=== PATIENT | female | born 1975 | race Caucasian/White ===

== ENCOUNTER 2022-09-09 08:30 | Emergency (ER) | payer OTHER, SELFPAY ==
[2022-09-09] VITALS (7 sets, daily range): BP systolic 164; BP diastolic 103; PULSE 74–82; RESP 16; TEMP 36.5; O2SAT 96–98; BMI 24.2
--- NOTE | 2022-09-09 08:53 | ED.GENADULT ---
HPI - General Adult General Chief complaint: Abdominal Pain Stated complaint: diverticulitis acting up Time Seen by Provider: 09/09/22 08:46 Source: patient Mode of arrival: Ambulatory Limitations: no limitations History of Present Illness HPI narrative: Patient is a 47-year-old female who is here for evaluation of 3 days of left-sided abdominal discomfort. Had some nausea last evening but not currently. She also states that she feels like she is been constipated for the past 3 days. She is not having any urinary symptoms or vaginal bleeding. She has had history of diverticulitis. This did not require surgery but she was admitted to the hospital for several days because of how extensive it was. She has had a hysterectomy. She denies any fevers. States this feels very much like her prior history of diverticulitis. Has not tried anything for the symptoms prior to arrival. Related Data Previous Rx's Medication Instructions Recorded ciprofloxacin HCl 500 mg tablet 500 mg PO BID #14 tabs 01/17/17 (Cipro) metronidazole 500 mg tablet 500 mg PO Q8H #20 tabs 01/17/17 ciprofloxacin HCl 500 mg tablet 500 mg PO BID 10 days #20 tabs 09/09/22 (Cipro) metronidazole 500 mg tablet 500 mg PO TID 10 days #30 tabs 09/09/22 Allergies Allergy/AdvReac Type Severity Reaction Status Date / Time No Known Drug Allergies Allergy Verified 09/09/22 08:57 Review of Systems Constitutional Constitutional: Reports system reviewed and no additional complaints, except as documented Respiratory Respiratory: Reports system reviewed and no additional complaints, except as documented Gastrointestinal Gastrointestinal: Reports system reviewed and no additional complaints, except as documented Genitourinary Genitourinary: Reports system reviewed and no additional complaints, except as documented Integumentary/Breasts Skin/Breast: Reports system reviewed and no additional complaints, except as documented Neurologic Neurologic: Reports system reviewed and no additional complaints, except as documented Hematologic/Lymphatic On Anticoagulants: No Exam Initial Vital Signs Initial Vital Signs: Vital Signs Temperature 97.7 F 09/09/22 08:43 Pulse Rate 82 09/09/22 08:43 Respiratory Rate 16 09/09/22 08:43 Blood Pressure 164/103 H 09/09/22 08:43 Pulse Oximetry 97 09/09/22 08:43 Oxygen Delivery Method Room Air 09/09/22 08:43 HENMN Head: normal to inspection and normocephalic Resp Effort & Inspection: normal respiratory effort Auscultation: clear to auscultation bilaterally Cardio Rate: regular rate Rhythm: regular rhythm GI Inspection: normal to inspection Palpation: soft and tender (Left-sided abdomen) Back/Spine/Pelvis Back: CVA tenderness Skin General: no rashes or lesions noted Neuro General: patient alert, patient awake and moves all extremities Extrem General: normal to inspection and capillary refill normal Course Orders Ordered: ED Orders 09/09/22 08:50 Complete Blood Count AUTO DIFF Stat Comprehensive Metabolic Panel Stat Lipase Stat Test Serum,Qual Stat 09/09/22 08:54 CT abdomen pelvis w con Stat 09/09/22 09:19 Urine Microscopic Stat Discontinued Medications Sodium Chloride (Normal Saline 0.9%) 1,000 mls @ 1,000 mls/hr IV BOLUS ONE Stop: 09/09/22 09:52 Last Infusion: 09/09/22 10:28 Dose: 0 mls/hr Documented By: Admin: 09/09/22 09:11 Dose: 1,000 mls/hr Documented By: ESTEPHANIE Morphine Sulfate (Morphine 4 Mg/Ml Inj) 4 mg IV NOW ONE Stop: 09/09/22 09:12 Last Admin: 09/09/22 09:31 Dose: 4 mg Documented By: SHAYAN Vital Signs Vital signs: Vital Signs - 8 hr 09/09/22 08:43 Temperature 97.7 F Pulse Rate 82 Respiratory Rate 16 Blood Pressure 164/103 H Pulse Oximetry 97 Oxygen Delivery Method Room Air Medical Decision Making Lab Data Lab results reviewed: Yes I reviewed the patient's lab results. 09/09/22 08:50 09/09/22 08:50 Labs: Lab Results 09/09/22 09/09/22 09/09/22 Range/Units 08:50 08:50 08:50 WBC 9.4 (4.5-11.0) X10^3/uL RBC 4.40 (4.0-5.2) X10^6/uL Hgb 13.7 (12.0-16.0) g/dL Hct 39.6 (36-46) % MCV 90.0 (80-100) fL MCH 31.1 (26-34) PG MCHC 34.6 (30-36) % RDW 12.9 (11.6-14.8) % Plt Count 243 (150-400) X10^3/uL Neut % (Auto) 80.0 H (50-75) % Lymph % (Auto) 11.2 L (25-40) % [place] % (Auto) 7.8 (3-14) % Eos % (Auto) 0.6 L (2-4) % Baso % (Auto) 0.4 (0-2) % Neut # (Auto) 7500 H (6096-9215) /uL Lymph # (Auto) 1000 L (7029-9639) /uL [place] # (Auto) 700 (0-900) /uL Eos # (Auto) 100 (0-450) /uL Baso # (Auto) 0 (0-100) /uL Sodium 136 L (137-145) mmol/L Potassium 3.7 (3.4-5.1) mmol/L Chloride 101 (98-107) mmol/L Carbon Dioxide 28 (22-32) mmol/L BUN 8 (7-17) mg/dL Creatinine 0.65 (0.52-1.04) mg/dL Estimated GFR > 60 (>60) mL/min BUN/Creatinine Ratio 12.3 (6-22) Glucose 106 H (70-100) mg/dL Calcium 9.1 (8.4-10.2) mg/dL Total Bilirubin 1.0 (0.2-1.3) mg/dL AST 19 (14-36) IU/L ALT 20 (<35) IU/L Alkaline Phosphatase 52 (38-126) U/L Total Protein 8.0 (6.3-8.2) g/dL Albumin 4.4 (3.5-5.0) g/dL Globulin 3.6 (1.7-4.1) g/dL Albumin/Globulin Ratio 1.2 (1.0-2.8) Lipase 79 (23-300) U/L Serum , Qual Negative (Negative) Urine RBC (0-5/HPF) Urine WBC (0-5/HPF) Ur Squamous Epith Cells (0-5/HPF) Urine Bacteria (None) Ur Culture Indicated? 09/09/22 Range/Units 09:19 WBC (4.5-11.0) X10^3/uL RBC (4.0-5.2) X10^6/uL Hgb (12.0-16.0) g/dL Hct (36-46) % MCV (80-100) fL MCH (26-34) PG MCHC (30-36) % RDW (11.6-14.8) % Plt Count (150-400) X10^3/uL Neut % (Auto) (50-75) % Lymph % (Auto) (25-40) % [place] % (Auto) (3-14) % Eos % (Auto) (2-4) % Baso % (Auto) (0-2) % Neut # (Auto) (0431-2879) /uL Lymph # (Auto) (3748-3134) /uL [place] # (Auto) (0-900) /uL Eos # (Auto) (0-450) /uL Baso # (Auto) (0-100) /uL Sodium (137-145) mmol/L Potassium (3.4-5.1) mmol/L Chloride (98-107) mmol/L Carbon Dioxide (22-32) mmol/L BUN (7-17) mg/dL Creatinine (0.52-1.04) mg/dL Estimated GFR (>60) mL/min BUN/Creatinine Ratio (6-22) Glucose (70-100) mg/dL Calcium (8.4-10.2) mg/dL Total Bilirubin (0.2-1.3) mg/dL AST (14-36) IU/L ALT (<35) IU/L Alkaline Phosphatase (38-126) U/L Total Protein (6.3-8.2) g/dL Albumin (3.5-5.0) g/dL Globulin (1.7-4.1) g/dL Albumin/Globulin Ratio (1.0-2.8) Lipase (23-300) U/L Serum , Qual (Negative) Urine RBC 1-5/hpf (0-5/HPF) Urine WBC None seen (0-5/HPF) Ur Squamous Epith Cells 5-10 /hpf H (0-5/HPF) Urine Bacteria None seen (None) Ur Culture Indicated? Cult not indicated Point of Care Testing Test Results Negative Urine Dip Bedside Urine Glucose Negative Bedside Urine Bilirubin - Negative Bedside Urine Ketone - Negative Urine Specific [place] 1.020 Bedside Urine Occult Blood +++ Bedside Urine pH 6.0 Bedside Urine Protein - Negative Bedside Urine Urobilinogen - Negative Bedside Urine Nitrite - Negative Bedside Urine Leukocytes - Negative Esterase Point of care testing: Point of Care Testing Test Results Negative Urine Dip Bedside Urine Glucose Negative Bedside Urine Bilirubin - Negative Bedside Urine Ketone - Negative Urine Specific [place] 1.020 Bedside Urine Occult Blood +++ Bedside Urine pH 6.0 Bedside Urine Protein - Negative Bedside Urine Urobilinogen - Negative Bedside Urine Nitrite - Negative Bedside Urine Leukocytes - Negative Esterase Imaging Data CT scan - abdomen/pelvis: Radiologist's Impression: PROCEDURE:? CT ABDOMEN PELVIS W CON ? INDICATIONS:? L sided abd pain ? TECHNIQUE:? After the administration of intravenous contrast, axial sections acquired from the lung bases to the pubic symphysis.? Coronal and sagittal reformats were performed.? For radiation dose reduction, the following was used:? automated exposure control, adjustment of mA and/or kV according to patient size.? ? COMPARISON:? [facility], CT, ABDOMEN/PELVIS WITH CONTRAST, 01/15/2017, 17:23. ? FINDINGS:? Image quality:? Good ? Lower chest:? Basal scarring/atelectasis. ? Solid organs:? Liver is unremarkable.? Subcentimeter lesions are too small to characterize.? Gallbladder is unremarkable by CT.? No pathologic dilation of the biliary tree or pancreatic duct.? Overall appearance is similar to prior.? No splenomegaly.? No adrenal nodules.? No hydronephrosis.? Partially duplicated right collecting system is suspected. ? Vessels and lymph nodes:? The main portal vein is patent.? No pathologic adenopathy by size criteria.? No abdominal aortic aneurysm. ? Bowel and peritoneum:? No small bowel obstruction.? No drainable abscess or pathologic ascites.? Moderate degree of wall thickening is seen at the proximal sigmoid colon, with multiple diverticula, some which are inflamed.? Findings are in a similar location compared to 2017 imaging. ? Body wall:? Small fat containing umbilical hernia. ? Pelvis:? Adnexal structures appear physiologic by limited CT evaluation, consider ultrasound if there is further concern.? Hysterectomy.? Bladder is unremarkable.? A small amount of likely physiologic fluid is present. ? Bones:? No acute or suspicious osseous finding. ? ? IMPRESSION:? Sigmoid diverticulitis.? No pathologic ascites or drainable abscess.? This is in a similar location compared to 2017, and moderate wall thickening is present.? Colonoscopy is recommended following clinical resolution to further evaluate. ? Other findings as above. MDM Narrative Medical decision making narrative: Patient has had a history of diverticulitis and I suspect that that is what brought her in today however given the fact that she states she is not had a bowel movement the past couple days I do feel that an CT scan is warranted to evaluate for obstruction. This was performed and did show sigmoid diverticulitis but no signs of abscess, perforations or obstructions. Will discharge the patient on antibiotics. No indication for admission to the hospital. She was given strict return precautions. We did discuss the importance of her following up with General surgery to have a colonoscopy once the symptoms have improved. She expressed understanding and agreement with plan. Discharge Plan Departure Patient Disposition: Home Clinical Impression: Sigmoid diverticulitis Instructions: DI for Diverticulitis Activity Restrictions/Additional Instructions: Antibiotics were sent to the pharmacy of your choice. Please pick them up and start taking them as directed. I also recommend that once your symptoms have resolved you contact the general surgery department at the number provided below for a follow-up. Return to the emergency department for any new or worsening symptoms. Prescriptions: New ciprofloxacin HCl [Cipro] 500 mg tablet 500 mg PO BID 10 Days Qty: 20 0RF metronidazole 500 mg tablet 500 mg PO TID 10 Days Qty: 30 0RF No Action metronidazole 500 MG tablet 500 mg PO Q8H Qty: 20 0RF ciprofloxacin HCl [Cipro] 500 MG tablet 500 mg PO BID Qty: 14 0RF Referrals: Marga Ashton MD [Physician] - Chiquita Cisneros PA-C [Primary Care Provider] - Stand Alone Forms: Patient Portal/API
--- NOTE | 2022-09-09 08:54 | DI.CT.S_ITS ---
PROCEDURE: CT ABDOMEN PELVIS W CON INDICATIONS: L sided abd pain TECHNIQUE: After the administration of intravenous contrast, axial sections acquired from the lung bases to the pubic symphysis. Coronal and sagittal reformats were performed. For radiation dose reduction, the following was used: automated exposure control, adjustment of mA and/or kV according to patient size. COMPARISON: [facility], CT, ABDOMEN/PELVIS WITH CONTRAST, 01/15/2017, 17:23. FINDINGS: Image quality: Good Lower chest: Basal scarring/atelectasis. Solid organs: Liver is unremarkable. Subcentimeter lesions are too small to characterize. Gallbladder is unremarkable by CT. No pathologic dilation of the biliary tree or pancreatic duct. Overall appearance is similar to prior. No splenomegaly. No adrenal nodules. No hydronephrosis. Partially duplicated right collecting system is suspected. Vessels and lymph nodes: The main portal vein is patent. No pathologic adenopathy by size criteria. No abdominal aortic aneurysm. Bowel and peritoneum: No small bowel obstruction. No drainable abscess or pathologic ascites. Moderate degree of wall thickening is seen at the proximal sigmoid colon, with multiple diverticula, some which are inflamed. Findings are in a similar location compared to 2017 imaging. Body wall: Small fat containing umbilical hernia. Pelvis: Adnexal structures appear physiologic by limited CT evaluation, consider ultrasound if there is further concern. Hysterectomy. Bladder is unremarkable. A small amount of likely physiologic fluid is present. Bones: No acute or suspicious osseous finding. IMPRESSION: Sigmoid diverticulitis. No pathologic ascites or drainable abscess. This is in a similar location compared to 2017, and moderate wall thickening is present. Colonoscopy is recommended following clinical resolution to further evaluate. Other findings as above. Dictated by: Mark Goins M.D. on 09/09/2022 at 10:15 Approved by: Mark Goins M.D. on 09/09/2022 at 10:21
[2022-09-09] MEDS: SODIUM CHLORIDE 0.9% 1,000 ML 1000 ML IV (09:11)
[2022-09-09 09:12] LABS: Add Manual Diff / Slide Review NO; Basophils Absolute Auto 0 /uL (0-100); Basophils Percent Auto 0.4 % (0-2); Eosinophils Absolute Auto 100 /uL (0-450); Eosinophils Percent Auto 0.6 % (2-4); Hematocrit 39.6 % (36-46); Hemoglobin 13.7 g/dL (12.0-16.0); Lymphocytes Absolute Auto 1000 /uL (1100-4500); Lymphocytes Percent Auto 11.2 % (25-40); Mean Corpuscular HGB Conc 34.6 % (30-36); Mean Corpuscular Hemoglobin 31.1 PG (26-34); Monocytes Absolute Auto 700 /uL (0-900); Monocytes Percent Auto 7.8 % (3-14); Neutrophils Absolute Auto 7500 /uL (1500-7000); Platelet Count 243 X10^3/uL (150-400); Red Cell Distribution Width 12.9 % (11.6-14.8); White Blood Cell Count 9.4 X10^3/uL (4.5-11.0)
[2022-09-09 09:15] LABS: Pregnancy Test Serum,Qual Negative (Negative)
[2022-09-09 09:19] LABS: Alanine Aminotransferase 20 IU/L (<35); Albumin 4.4 g/dL (3.5-5.0); Albumin Globulin Ratio 1.2 (1.0-2.8); Alkaline Phosphatase 52 U/L (38-126); Aspartate Aminotransferase 19 IU/L (14-36); BUN Creatinine Ratio 12.3 (6-22); Blood Urea Nitrogen 8 mg/dL (7-17); Calcium 9.1 mg/dL (8.4-10.2); Carbon Dioxide 28 mmol/L (22-32); Chloride 101 mmol/L (98-107); Estimated Glomerular Filt Rate > 60 mL/min (>60); Globulin 3.6 g/dL (1.7-4.1); Glucose 106 mg/dL (70-100); HEMOLYSIS < 15 (0-50); Lipase 79 U/L (23-300); Potassium 3.7 mmol/L (3.4-5.1); Sodium 136 mmol/L (137-145)
[2022-09-09] MEDS: MORPHINE 4 MG/ML INJ IV (09:31)
[2022-09-09 09:50] LABS: Bacteria Urine None Seen; Culture Indicated Urine Cult Not Indicated; RBC Urine 1-5/HPF (0-5/HPF); Squamous Epithelial Cell Urine 5-10 /HPF (0-5/HPF); WBC Urine None Seen (0-5/HPF)
== END 2022-09-09 11:04 | disposition home or self-care (01) ==
PROVIDERS: Emergency Provider Emergency Medicine; Family Provider Physician Assistant Medical; PCP Physician Assistant Medical
DX: K57.32 Diverticulitis of large intestine without perforation or abscess without bleeding (principal); K59.00 Constipation, unspecified
CPT/HCPCS: 36415; 74177; 80053; 81003; 81015; 81025; 83690; 84703; 85025; 96361; 96374; 99284; J2270